=== PATIENT | male | born 1965 | race Caucasian/White ===

== ENCOUNTER 2017-02-25 06:45 | Emergency (ER) | payer OTHER ==
[~2017-02-25] VITALS: Ht 188 cm; Wt 104.5 kg
[2017-02-25 06:59] VITALS: BP 149/98; PULSE 76; RESP 15; O2SAT 98
--- NOTE | 2017-02-25 08:19 | ED.REPORT ---
HPI-Extremity Problem Upper Date of Service Feb 25, 2017 ED Provider: Matilda Desai MD Patient is a 51 year old male who presents to the ED complaining of R upper arm pain onset yesterday immediately after pulling wires at work. He also reports hitting the back of his arm on a ladder. Pt is R handed. He describes the pain as sharp, constant, and exacerbated by ROM. He denies numbness, weakness, tingling, or any other symptoms. Nursing Notes Stated Complaint: RT ARM PAIN Chief Complaint: Extremity Trauma Nursing Notes Reviewed: Yes Allergies: Coded Allergies: No Known Allergies (Unverified , 02/25/17) Scheduled PRN Hydrocodone-Acetaminophen 5-325 mg (Hydrocodone-Acetaminophen 5-325 mg) 1 Each Tablet 1 TABLET PO Q4H PRN PRN For Pain General Time Seen by MD: 08:19 Chief Complaint Arm injury right Hx Obtained From: Patient Arrived By: Walk-in Onset Occurred: Yesterday Symptom Duration: Since onset Context: Occurred at: Workplace Location: : Arm right: Shoulder right Quality: Painful, Sharp Severity: Current: Moderate Severity: Maximum: Moderate Pertinent Negative: Pt denies other symptoms Exacerbated by: Range of motion Immunizations: Unknown Past Medical History Past Medical History None reported Past Surgical History None reported Smoking History Unknown if Ever Smoker Ambulatory Status Independent Review of Systems Review of Systems Note: -tingling Musculoskeletal: Reports: Extremity pain, Joint pain Neurologic: Denies: Focal weakness, Numbness Complete sys rev & neg: except as marked. Physical Exam Initial Vital Signs Vital Signs (First) Date Time Temp Pulse Resp B/P Pulse Ox O2 Delivery O2 Flow Rate FiO2 02/25/17 06:59 36.2 76 15 149/98 98 Room Air Initial VS: Reviewed, Vital signs abnormal Head / Eyes: Atraumatic, Normocephalic Neck: Full range of motion Skin: Warm, Dry Neurologic: Alert, Oriented, Nonfocal Psychiatric: Mood/affect normal, Behavior normal, Normal thought content General/Constitutional: Awake, Alert Respiratory / Chest: Atraumatic, Breath sounds NL, Breath sounds = bilat, No respiratory distress Cardiovascular: Heart rate NL, Regular rhythm, Heart sounds NL Upper Extremity / MS: No deformity, Neurologic intact, Vascular intact Anterior deltoid pain Pain to the proximal humerus Minimal pain with passive movement Good pulses Interpretation & Diagnostics X-Ray Interpretation Xray Interpretation: IMPRESSION: No acute osseous abnormality of the right shoulder. Dictated by: David Yoder M.D. on 02/25/2017 at 8:22 Approved by: David Yoder M.D. on 02/25/2017 at 8:23 Study Performed: 3 view X-Ray Ordered: Shoulder right Interpretation / Wet Read by: Interpret - Radiologist Xray Interpretation: IMPRESSION: No acute osseous and amount of the right humerus. Dictated by: David Yoder M.D. on 02/25/2017 at 8:23 Approved by: David Yoder M.D. on 02/25/2017 at 8:23 Study Performed: 2 view X-Ray Ordered: Humerus right Interpretation / Wet Read by: Interpret - Radiologist Re-Eval/Medical Decision Med Decision/Clinical Course The patient has right shoulder pain it's mostly anterior. There was a specific incident where he started feeling sore and then he hit his arm. There is no fracture and no obvious rotator cuff injury. The patient is neurovascularly intact. Re-Evaluation/Progress : Time of Eval: 09:47 Re-Evaluation/Progress Note: Rechecked pt. Discussed xray results and plan for discharge. Patient understands and agrees with plan. All questions addressed at this time. Counseled Regarding: Diagnosis, Lab results, Need for follow-up, When/why to return to ED Discharge & Departure Impression: Primary Impression: Shoulder strain Encounter type: initial encounter Laterality: right Qualified Code: S46.911A - Strain of unspecified muscle, fascia and tendon at shoulder and upper arm level, right arm, initial encounter Disposition: Home Discharge Condition All VS Reviewed: Yes Condition: Stable Additional Instructions: Thank you for entrusting us with your care. Your x-rays and examination are reassuring. We did not find a fracture at this time. Rest your injury but do not immobile it. Perform activities as tolerated. You may use ice and heat (20 minutes at a time, 3-4 times a day) to help relieve your pain. Take Ibuprofen (up to 800mg every 8 hours) for additional pain relief. Follow up with your primary doctor in the next 1-2 days for re-evaluation. Return to the emergency department for numbness, weakness, or tingling in your arm, hand, or fingers, swelling, or any other new or concerning symptoms. Referrals: NOPCP (PCP) Scribe Attestation Portions of this note were transcribed by Bogdan Dominguez. I, Dr. Desai personally performed the history, physical exam and medical decision-making; I reviewed and confirmed the accuracy of the information in the transcribed note. Signed by: Lawson Mendez, 02/25/17 Matilda Desai MD Feb 25, 2017 08:19 BOGDAN DOMINGUEZ Feb 25, 2017 08:30
--- NOTE | 2017-02-25 09:24 | DRSVH ---
PROCEDURE: X-RAY RIGHT SHOULDER, MINIMUM TWO VIEWS ([id number]) INDICATIONS: pain and trauma TECHNIQUE: 3 views of the shoulder were acquired. COMPARISON: [facility], [place], XR HUMERUS 2VW RT, 02/25/2017, 8:59. FINDINGS: Bones: No fractures or dislocations. No suspicious bony lesions. Visualized ribs appear intact. T here are mild to moderate degenerative changes of the glenohumeral and acromioclavicular joints. Soft tissues: No suspicious soft tissue calcifications. The overlying soft tissues are within normal limits. IMPRESSION: No acute osseous abnormality of the right shoulder. Dictated by: David Yoder M.D. on 02/25/2017 at 8:22 Approved by: David Yoder M.D. on 02/25/2017 at 8:23
--- NOTE | 2017-02-25 09:25 | DRSVH ---
PROCEDURE: X-RAY RIGHT HUMERUS, MINIMUM TWO VIEWS ([id number]) INDICATIONS: pain and trauma TECHNIQUE: 2 views of the humerus were acquired. COMPARISON: [facility], CR, XR SHOULDER MIN 2VW RT, 02/25/2017, 8:59. FINDINGS: Bones: No fractures or dislocations. No suspicious bony lesions. Soft tissues: No suspicious soft tissue calcifications. IMPRESSION: No acute osseous and amount of the right humerus. Dictated by: David Yoder M.D. on 02/25/2017 at 8:23 Approved by: David Yoder M.D. on 02/25/2017 at 8:23
[2017-02-25] MEDS ORDERED: HYDR-4003 PO (10:00)
== END 2017-02-25 10:05 | disposition home or self-care (01) ==
LOC: SED 06:45
DX: S46.911A Strain of unspecified muscle, fascia and tendon at shoulder and upper arm level, right arm, initial encounter (principal); W22.8XXA Striking against or struck by other objects, initial encounter; Y93.89 Activity, other specified; Y92.69 Other specified industrial and construction area as the place of occurrence of the external cause; Y99.0 Civilian activity done for income or pay